=== PATIENT | female | born 1930 | race Caucasian/White ===

== ENCOUNTER 2018-09-18 09:48 | Day surgery (SDC) | payer OTHER ==
[2018-09-18] MEDS ORDERED: LIDOCAINE HCL/PF 2% SDV 5ML VIAL ONE (10:39)
[2018-09-18 10:41] VITALS: BMI 23.1
[2018-09-18 11:40] VITALS: TEMP 97.9
[2018-09-18 11:43] VITALS: BP 128/70; PULSE 62
--- NOTE | 2018-09-19 12:31 | PATH ---
Surgical Pathology Report Patient Name: AMELIA KEARNEY [facility]. Rec. #: [id number] /Age/Gender: 1930 (Age: 88) / F Account: [id number] Location: [facility] Taken: 09/18/2018 Received: 09/18/2018 Reported: 09/19/2018 Physicians: Isidro Powell M.D. Specimen(s) Received A: DUODENUM B: ANTRUM Clinical History Dysphagia Postoperative diagnosis: Gastritis, esophageal stricture Final Diagnosis A. DUODENUM, BIOPSY: DUODENAL MUCOSA WITH MILD CHRONIC DUODENITIS. B. 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 IMMUNOHISTOCHEMICAL STAIN FOR H. PYLORI IS NEGATIVE. Electronically Signed Amparo Pastrana M.D. Gross Description A. Received in formalin, labeled "duodenum biopsy" are 2 [place], irregular portions of soft tissue measuring 0.4 and 0.6 cm. in greatest dimension. The specimens are submitted in toto in one cassette. B. Received in formalin, labeled "antrum biopsy" are 2 [place], irregular portions of soft tissue averaging 0.3 cm. in greatest dimension. The specimens are submitted in toto in one cassette. 09/18/2018 saudi09/18/2018
== END 2018-09-18 11:45 | disposition home or self-care (01) ==
LOC: FASU-ENDO 09:48
PROVIDERS: ATTEND Internal Medicine Gastroenterology
PROC: 0DB68ZX Excision of Stomach, Via Natural or Artificial Opening Endoscopic, Diagnostic (ICD-10-PCS; 2018-09-18)
PROC: 0D748DZ Dilation of Esophagogastric Junction with Intraluminal Device, Via Natural or Artificial Opening Endoscopic (ICD-10-PCS; 2018-09-18)
PROC: 0DB98ZX Excision of Duodenum, Via Natural or Artificial Opening Endoscopic, Diagnostic (ICD-10-PCS; principal; 2018-09-18 10:50)
DX: K22.2 Esophageal obstruction (principal); K29.50 Unspecified chronic gastritis without bleeding; K29.80 Duodenitis without bleeding
CPT/HCPCS: 88305-TC; 88342-TC